=== PATIENT | male | born 1990 | race Caucasian/White ===

== ENCOUNTER 2019-12-23 13:28 | Emergency (ER) | payer OTHER, SELFPAY ==
[2019-12-23 13:52] VITALS: BP 118/87; PULSE 76; RESP 16; TEMP 37; O2SAT 100
--- NOTE | 2019-12-23 13:58 | ED.EAR ---
HPI - Ear Problem General Chief complaint: Ear Stated complaint: left ear infection Time Seen by Provider: 12/23/19 13:58 Source: patient and RN notes reviewed Mode of arrival: ambulatory Limitations: no limitations History of Present Illness HPI Narrative: 29-year-old male presents with concern for left ear pain radiating to the left jaw. Reports symptoms started . Reports he also started having headache and positional dizziness that time. He denies rhinorrhea, nasal congestion, fever, malaise. Reports taking NyQuil with some relief MD Complaint: ear pain Location: left ear Related Data Home Medications Medication Instructions Recorded Confirmed Adult Multivitamin (w-lutein) 1 tab/day DAILY 12/23/19 12/23/19 Allergies Allergy/AdvReac Type Severity Reaction Status Date / Time Sulfa (Sulfonamide Allergy Unknown RASH Verified 03/21/18 15:32 Antibiotics) Review of Systems Review of Systems: Narrative: CONSTITUTIONAL: Denies malaise, chills, sweats, or fever. EYES: Denies visual changes, redness, or discharge. ENT: Denies rhinorrhea, congestion, sinus pain, and sore throat. Reports left otalgia CARDIOVASCULAR: Denies chest pain, palpitations, or edema. RESPIRATORY: Denies cough or dyspnea. GASTROINTESTINAL: Denies abdominal pain, nausea, vomiting, diarrhea SKIN: Denies rash or itching. MUSCULOSKELETAL: Denies myalgia. NEUROLOGIC: Reports headache, positional dizziness. All systems reviewed & are unremarkable except as noted in HPI and below PMFSH Social History Social History Gender identity (if verbalized by the patient): Male Comments At time of signature, agree with nursing past medical, surgical, social and family history. There is no relevant family history pertinent to the presenting complaint Exam Narrative: Exam Narrative: GENERAL: Well-appearing, well-nourished, and in no acute distress. HEAD: Normocephalic EYES: PERRLA, conjunctivae clear ENT: Nares clear, turbinates erythematous, clear discharge. Mucous membranes moist. TM pearly webster with right sharp light reflex, left lower reflex; no tragal tenderness. Oropharynx not erythematous without lesions. Tonsils not enlarged and without exudate, no drooling, no hoarseness, no trismus, uvula midline. NECK: Supple. No lymphadenopathy CHEST: Clear to auscultation, breath sounds equal. No wheezing, rhonchi, rales, or stridor. No respiratory distress, speaks in full sentences. HEART: Regular rate and rhythm. No murmur heard. SKIN: Warm, dry, no rash. NEURO: Alert and oriented x3. No focal deficits. Cranial nerves II through XII grossly intact PSYCH: Normal mood and affect Course Course Emergency Course: Patient is aware of diagnosis, understands and agrees to treatment plan. Anticipatory guidance given. Patient agrees to follow-up as directed and is aware of reasons to seek care at the emergency department. Portions of this record may have been created with voice recognition software Vital Signs Vital signs: Vital Signs Temperature 98.6 F 12/23/19 13:52 Pulse Rate 76 12/23/19 13:52 Respiratory Rate 16 12/23/19 13:52 Blood Pressure 118/87 12/23/19 13:52 Pulse Oximetry 100 12/23/19 13:52 Temperature 98.6 F 12/23/19 13:52 Pulse Rate 76 12/23/19 13:52 Respiratory Rate 16 12/23/19 13:52 Blood Pressure 118/87 12/23/19 13:52 Pulse Oximetry 100 12/23/19 13:52 Reviewed. Medical Decision Making MDM Narrative Medical decision making narrative: Differential diagnosis considered: Migraine headache, intracranial pathology, CVA, strep pharyngitis, allergic rhinitis, upper respiratory tract infection, sinusitis, rhinosinusitis, nasopharyngitis. viral pharyngitis, otitis media, otitis externa, pneumonia, bronchitis, viral cough syndrome, viral syndrome, and influenza. Exam findings show no acute concerns or changes; patient is non-toxic appearing and is in no distress. Patient is appropriate for outpatient treatment
== END 2019-12-23 14:17 | disposition home or self-care (01) ==
PROVIDERS: Emergency Provider Nurse Practitioner
DX: H92.02 Otalgia, left ear (principal)
CPT/HCPCS: 99213; G0463

== ENCOUNTER 2020-03-28 20:58 | Emergency (ER) | payer OTHER, SELFPAY ==
[2020-03-28 21:09] VITALS: BP 153/95; PULSE 70; RESP 20; TEMP 36.6; O2SAT 100
[2020-03-28] MEDS: BELLADONNA ALK/PHENOB ELIX 10 ML, MAG HYDROX/ALUMINUM HYD/SIMETH 30 ML, LIDOCAINE HCL 2... PO (21:23)
--- NOTE | 2020-03-28 21:33 | ED.ABDPAIN ---
HPI - Abdominal Pain General Chief Complaint: Abdominal Pain Stated Complaint: ABD PAIN Time Seen by Provider: 03/28/20 21:12 History of Present Illness HPI narrative: Patient is a 29-year-old male who presents ER with burning in his epigastrium going into his chest. Ongoing for last 3 days. Took some Tums without relief. No nausea/vomiting/shortness of breath. Is worse when he leans over forward but not when he lays down back. No previous medical issues. No known family history of cardiac disease. No exertional component. No dark black-colored stools or diarrhea. Related Data Home Medications Medication Instructions Recorded Confirmed Adult Multivitamin (w-lutein) 1 tab/day DAILY 12/23/19 12/23/19 Allergies Allergy/AdvReac Type Severity Reaction Status Date / Time Sulfa (Sulfonamide Allergy Unknown RASH Verified 03/21/18 15:32 Antibiotics) Review of Systems Review of Systems: All systems reviewed & are unremarkable except as noted in HPI and below Constitutional: Constitutional: Denies chills, Denies fever(s) and Denies weakness ENT: Denies nasal congestion and Denies sore throat Cardiovascular: Cardiovascular: Denies chest pain and Denies rapid heart rate Respiratory: Respiratory: Denies cough and Denies dyspnea Gastrointestinal: Gastrointestinal: Reports abdominal pain, Denies constipation, Denies heartburn, Denies diarrhea, Denies nausea and Denies vomiting PMFSH Past Medical History Medical History (Updated 03/28/20 @ 23:41 by Wood Mabry MD) Healthy adult male Surgical History Surgical History (Updated 03/28/20 @ 21:35 by Wood Mabry MD) History of colonoscopy Social History Social History (Updated 03/28/20 @ 21:35 by Wood Mabry MD) Smoking status: Never smoker Gender identity (if verbalized by the patient): Male Exam Narrative: Exam Narrative: GENERAL: Well-appearing, well-nourished, and in no acute distress. HEAD: Normocephalic, atraumatic. ENT: Mucous membranes moist. CHEST: Clear to auscultation. No respiratory distress. HEART: Regular rate and rhythm. Normal peripheral pulses. ABDOMEN: Soft, nontender, nondistended. EXTREMITIES: Normal range of motion. No edema. SKIN: Warm, dry, no rash. NEURO: Alert and oriented x3. Course Course Emergency Course: Improved with GI cocktail. D/c. Vital Signs Vital signs: Vital Signs Temperature 97.8 F 03/28/20 21:09 Pulse Rate 70 03/28/20 21:09 Respiratory Rate 20 03/28/20 21:09 Blood Pressure 153/95 H 03/28/20 21:09 Pulse Oximetry 100 03/28/20 21:09 Temperature 97.8 F 03/28/20 21:09 Pulse Rate 57 L 03/28/20 23:39 Respiratory Rate 16 03/28/20 23:39 Blood Pressure 143/88 H 03/28/20 23:39 Pulse Oximetry 100 03/28/20 23:39 MDM - Abdominal Pain Lab Data Result diagrams: 03/28/20 21:39 03/28/20 21:39 Labs: Lab Results 03/28/20 03/28/20 03/28/20 Range/Units 21:39 21:39 21:39 WBC 8.1 (4.5-10.0) K/mm3 RBC 4.94 (4.6-6.20) M/mm3 Hgb 15.1 (14.0-18.0) g/dL Hct 42.5 (42.0-52.0) % MCV 86.0 (80-100) fl MCH 30.6 (26-34) pg MCHC 35.5 (32-36) g/dl RDW 11.8 (11.5-14.5) % Plt Count 233 (150-375) k/mm3 MPV 10.9 H (7.4-10.4) fl Immature Gran % (Auto) 0.1 (0-0.5) % Neut % (Auto) 53.8 (45.5-73.1) % Lymph % (Auto) 35.3 (18.3-44.2) % Patrick % (Auto) 8.6 H (2.6-8.5) % Eos % (Auto) 1.7 (0-4.4) % Baso % (Auto) 0.5 (0.2-1.2) % Lymph # (Auto) 2.85 (0.9-3.2) K/mm3 Patrick # (Auto) 0.7 H (0.1-0.6) K/mm3 Eos # (Auto) 0.1 (0-0.3) K/mm3 Baso # (Auto) 0.0 (0.0-0.1) K/mm3 Abs Immat Gran (auto) 0.01 (0.00-0.031) K/mm3 Absolute Neuts (auto) 4.3 (1.3-6.7) K/mm3 Absolute Nucleated RBC 0.0 (0.0-0.012) K/mm3 Nucleated RBC % 0.0 (0.0-0.2) % Sodium 139 (137-145) mmol/L Potassium 3.8 (3.4-5.0) mmol/L Chloride 100 (98-107) mmol/L Carbo
[2020-03-28 21:44] VITALS: BP 149/81; PULSE 69; RESP 18; O2SAT 99
[2020-03-28 21:44] LABS: Basophils Percent Auto 0.5 % (0.2-1.2); Eosinophils Absolute Auto 0.1 K/mm3 (0-0.3); Eosinophils Percent Auto 1.7 % (0-4.4); Hematocrit 42.5 % (42.0-52.0); Hemoglobin 15.1 g/dL (14.0-18.0); Immature Granulocyte Absolute 0.01 K/mm3 (0.00-0.031); Immature Granulocyte Percent A 0.1 % (0-0.5); Lymphocytes Absolute Auto 2.85 K/mm3 (0.9-3.2); Lymphocytes Percent Auto 35.3 % (18.3-44.2); Mean Corpuscular HGB Conc 35.5 g/dl (32-36); Mean Corpuscular Hemoglobin 30.6 pg (26-34); Mean Platelet Volume 10.9 fl (7.4-10.4); Monocytes Absolute Auto 0.7 K/mm3 (0.1-0.6); Monocytes Percent Auto 8.6 % (2.6-8.5); Neutrophils Absolute Auto 4.3 K/mm3 (1.3-6.7); Neutrophils Percent Auto 53.8 % (45.5-73.1); Platelet Count Result 233 k/mm3 (150-375); Red Blood Count 4.94 M/mm3 (4.6-6.20); Red Cell Distribution Width 11.8 % (11.5-14.5); White Blood Count 8.1 K/mm3 (4.5-10.0)
[2020-03-28 21:46] LABS: Add Urine Microscopic? NO; Appearance Urine Clear (Clear); Bilirubin Urine Negative (Negative); Blood Urine Negative (Negative); Color Urine Colorless (Yellow); Glucose Urine UA Negative (Negative); Ketones Urine Negative (Negative); Leukocyte Esterase Ur Negative LEU/UL (Negative); Nitrate Urine Negative (Negative); Protein Urine Negative (Negative); Specific Grav Ur 1.006 (1.001-1.035); Urobilinogen Urine Negative mg/dL (<2.0)
--- NOTE | 2020-03-28 21:46 | PC.NURSE ---
pt reports no relief after gi cocktail.
[2020-03-28 21:55] LABS: Alanine Aminotransferase 25 U/L (4-50); Albumin Level 4.9 g/dL (3.5-5.1); Alkaline Phosphatase 68 U/L (38-126); Anion Gap 11 mmol/L (8-16); Aspartate Amino Transferase 32 U/L (17-59); Bilirubin,Total 0.3 mg/dL (0.2-1.3); Blood Urea Nitrogen 12 mg/dL (9-20); Calcium 9.9 mg/dL (8.4-10.2); Carbon Dioxide 28 mmol/L (22-30); Chloride 100 mmol/L (98-107); Estimated Glomerular Filt Rate > 60; Glucose 99 mg/dL (75-110); Lipase 111 U/L (23-300); Potassium 3.8 mmol/L (3.4-5.0); Sodium 139 mmol/L (137-145)
[2020-03-28 22:33] VITALS: BP 139/67; PULSE 69; RESP 19; O2SAT 100
[2020-03-28 23:39] VITALS: BP 143/88; PULSE 57; RESP 16; O2SAT 100
[2020-03-28 23:49] VITALS: BP 139/79; PULSE 68; RESP 19; TEMP 36.2; O2SAT 100
== END 2020-03-28 23:50 | disposition home or self-care (01) ==
PROVIDERS: Emergency Provider Emergency Medicine
DX: K21.9 Gastro-esophageal reflux disease without esophagitis (principal)
CPT/HCPCS: 36415; 80053; 81003; 83690; 85025; 99283; A9270

== ENCOUNTER 2021-01-17 16:37 | Emergency (ER) | payer OTHER, SELFPAY ==
--- NOTE | 2021-01-17 16:42 | ED.SKABFB ---
HPI - Skin/Abscess/Foreign Bdy General Chief complaint: Skin/Abscess/Foreign Body Stated complaint: rash Time Seen by Provider: 01/17/21 16:43 Source: patient and RN notes reviewed Mode of arrival: ambulatory Limitations: no limitations History of Present Illness HPI narrative: 30-year-old male presents to the [facility] with complaints of a rash. Rash to his armpits since Monday, 5 days. Originally thought that it was the deodorant that he was using, started using a new deodorant 2 to 3 states they are itching and burning. Skin irritation noted. Weeks ago. Related Data Allergies Allergy/AdvReac Type Severity Reaction Status Date / Time Sulfa (Sulfonamide Allergy Unknown RASH Verified 01/17/21 16:52 Antibiotics) Review of Systems Review of Systems: All systems reviewed & are unremarkable except as noted in HPI and below Constitutional: Constitutional: Reports no additional constitutional complaints, Denies chills, Denies fever(s) and Denies weakness Eyes: Eyes: Reports no additional eye complaints ENT: Reports system reviewed and no additional complaints, except as documented Cardiovascular: Cardiovascular: Reports no additional cardiovascular complaints and Denies chest pain Respiratory: Respiratory: Reports no additional respiratory complaints, Denies cough, Denies dyspnea and Denies wheezing Musculoskeletal: Musculoskeletal: Reports no additional musculoskeletal complaints, Denies back pain, Denies arthralgias, Denies joint swelling and Denies muscle cramps Integumentary/Breasts: Skin/Breast: Reports erythema and Reports rash Comments: Redness and rash noted bilateral axilla, worse in the right than the left Neurologic: Reports system reviewed and no additional complaints, except as documented, Denies vertigo, Denies dizziness, Denies headache(s), Denies focal weakness and Denies numbness Psychiatric: Psychiatric: Reports no additional psychiatric complaints Allergic/Immunologic: Allergic/Immunologic: Reports no additional allergic/immunologic complaints, Denies lip swelling, Denies throat swelling, Denies tongue swelling and Denies wheezing PMFSH Past Medical History Medical History (Updated 01/17/21 @ 16:59 by Indy Thompson) Healthy adult male Surgical History Surgical History History of colonoscopy Social History Social History Smoking status: Never smoker Gender identity (if verbalized by the patient): Male Exam Const: General: healthy appearing, no acute distress and alert Nutritional Appearance: well nourished Orientation/consciousness: patient oriented x3 Limitations: no limitations HENMT: Head: normal to inspection Eyes: Pupils: Equal, round and reactive pupils present Neck: Neck: normal visual inspection, no lymphadenopathy and no meningeal signs Chest: Chest palpation & inspection: normal inspection of the chest Resp: Effort & Inspection: normal respiratory effort and no use of accessory muscles Auscultation: clear to auscultation bilaterally, no crackles, no rales, no rhonchi and no wheezes Cardio: Rate: regular rate Rhythm: regular rhythm Back/Spine/Pelvis: Back: no CVA tenderness Skin: Wounds: no wounds Other: Rashes that are red, raised and warm to touch bilateral axilla, worse on the right than the left. No treatment prior to arrival. Neuro: General: patient oriented x3, moves all extremities, no meningeal signs and no focal motor deficits Speech: normal speech Gait exam (Neuro): Normal gait present Extrem: General: normal to inspection and no pedal edema Psych: Appearance: grossly normal and well kempt Mental Status: mental status grossly normal Attitude: cooperative Thought content: Yes Normal thought content present Course Course Emergency Course: Discharge instructions reviewed with patient, as well as provided in writing per nursing staff. The instruc
[2021-01-17 16:55] VITALS: BP 142/83; PULSE 97; RESP 16; TEMP 36.6; O2SAT 100
== END 2021-01-17 17:24 | disposition home or self-care (01) ==
PROVIDERS: Emergency Provider Nurse Practitioner
DX: L73.9 Follicular disorder, unspecified (principal)
CPT/HCPCS: 99213; G0463

== ENCOUNTER 2022-06-03 13:33 | Emergency (ER) | payer OTHER, SELFPAY ==
--- NOTE | 2022-06-03 13:36 | ED.SKABFB ---
HPI - Skin/Abscess/Foreign Bdy General Chief complaint: Skin/Abscess/Foreign Body Stated complaint: rash under left armpit Time Seen by Provider: 06/03/22 13:44 Source: patient and RN notes reviewed Mode of arrival: ambulatory Limitations: no limitations History of Present Illness HPI narrative: 31-year-old male presents with concern for an itchy rash on his left axilla. He reports history of rash that he has had to treat antifungal cream. Reports the rash has been there for approximately 1 week. He denies any other rash. Denies any history of allergic reaction. Denies swollen lips, swollen tongue, trouble breathing. MD complaint: rash Related Data Allergies Allergy/AdvReac Type Severity Reaction Status Date / Time Sulfa (Sulfonamide Allergy Unknown RASH Verified 01/17/21 16:52 Antibiotics) Review of Systems Review of Systems: CONSTITUTIONAL: Denies malaise, chills, sweats, or fever. EYES: Denies redness, or discharge. ENT: Denies rhinorrhea, congestion, swollen lips, swollen tongue CARDIOVASCULAR: Denies chest pain, palpitations, or edema. RESPIRATORY: Denies cough or dyspnea. GASTROINTESTINAL: Denies abdominal pain, nausea, vomiting SKIN: Reports itchy rash in the left axilla MUSCULOSKELETAL: Denies joint pain or myalgia. NEUROLOGIC: Denies headache. All systems reviewed & are unremarkable except as noted in HPI and below PMFSH Past Medical History Medical History (Updated 06/03/22 @ 13:49 by Indy Arnett NP) Healthy adult male Surgical History Surgical History History of colonoscopy Social History Social History Smoking status: Never smoker Gender identity (if verbalized by the patient): Male Comments At time of signature, agree with nursing past medical, surgical, social and family history. There is no relevant family history pertinent to the presenting complaint Exam Narrative: GENERAL: Well-appearing, well-nourished, and in no acute distress. HEAD: Normocephalic, atraumatic. EYES: PERRLA, conjunctivae clear, and EOMI. ENT: Mucous membranes moist. Oropharynx without edema, erythema or lesions. NECK: Supple. No lymphadenopathy CHEST: Clear to auscultation. No respiratory distress. HEART: Regular rate and rhythm. SKIN: Warm, dry. Two patches of erythematous papules in the left axilla NEURO: Alert and oriented x3. PSYCH: Normal mood and affect Course Course Emergency Course: Patient is aware of diagnosis, understands and agrees to treatment plan. Anticipatory guidance given. Patient agrees to follow-up as directed and is aware of reasons to seek care at the emergency department. Portions of this record may have been created with voice recognition software Level of Care: Express Care Visit Vital Signs Vital signs: Reviewed. MDM - Skin/Abscess/Foreign Bdy MDM Narrative Medical decision making narrative: Does not appear at this time to be erythema multiforme, bullous, SJS, TEN; no evidence at this time to suggest RMSF, endocarditis or Lyme disease; patient looks well, nontoxic and is tolerating oral intake; no neurologic signs or symptoms; no headache, photophobia or neck pain; afebrile; appropriate for initial outpatient treatment; discussed the importance of follow-up, patient agrees; question, viral exanthema, contact dermatitis, allergic dermatitis, eczema, urticaria, tinea. No soft palate or uvula edema, no tongue, lip edema or other mucosal involvement, no respiratory compromise, no stridor, no wheezing, no wheezing, no history of syncope, no hypotension, no nausea, vomiting, or diarrhea. Instructed patient to go to nearest ER immediately for any worsening symptoms including but not limited to: fever, spreading rash, pain, sore throat, headache, dizziness, chest pain, trouble breathing, or any symptoms concerning to the patient. Critical Care Time Critical Care Time Critical
[2022-06-03 13:40] VITALS: BP 138/82; PULSE 87; RESP 16; TEMP 36.6; O2SAT 100
[2022-06-03 13:44] VITALS: BP 138/82; PULSE 87; RESP 16; TEMP 36.6; O2SAT 100
== END 2022-06-03 13:55 | disposition home or self-care (01) ==
PROVIDERS: Emergency Provider Nurse Practitioner
DX: B35.9 Dermatophytosis, unspecified (principal)
CPT/HCPCS: 99213; G0463

== ENCOUNTER 2025-05-16 10:08 | Emergency (ER) | payer OTHER, SELFPAY ==
--- NOTE | ~2025-05-16 | XR_ITS ---
[id number] INDICATION:Neck Strain TECHNIQUE: 3 views of the cervical spine. FINDINGS: The cervical spine is visualized to the cervicothoracic junction. There is no prevertebral soft tissue swelling, listhesis, or loss of vertebral body height. Intervertebral disc spaces are normal. The osseous central canal is patent. No displaced cervical spine fractures are identified. IMPRESSION: 1. No acute osseous abnormality of the cervical spine. If symptoms persist or worsen, consider a CT or MRI for further assessment. Reviewed, dictated and finalized at location Q.
[2025-05-16 10:11] VITALS: BP 148/86; PULSE 86; RESP 14; TEMP 36.9; O2SAT 98
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
[2025-05-16] MEDS: IBUPROFEN 400 MG TABLET 800 MG PO (11:11)
[2025-05-16] MEDS: CYCLOBENZAPRINE HCL 10 MG TABLET PO (11:12)
[2025-05-16 11:30] VITALS: BP 140/83; PULSE 65; RESP 16; O2SAT 98
== END 2025-05-16 11:32 | disposition home or self-care (01) ==
PROVIDERS: Emergency Provider Emergency Medicine; PCP Registered Nurse
DX: S46.811A Strain of other muscles, fascia and tendons at shoulder and upper arm level, right arm, initial encounter (principal); S46.812A Strain of other muscles, fascia and tendons at shoulder and upper arm level, left arm, initial encounter; V49.40XA Driver injured in collision with unspecified motor vehicles in traffic accident, initial encounter; Y92.9 Unspecified place or not applicable
CPT/HCPCS: 72040; 99283; A9270